=== PATIENT | male | born 1950 | race Caucasian/White ===

== ENCOUNTER 2017-07-08 12:02 | Day surgery (SDC) | payer MEDICARE ==
[2017-07-08 13:01] LABS: ADD MAN DIFF? NO
[2017-07-08 13:02] LABS: WHITE BLOOD COUNT 4.9 10^3/ul (4.8-10.8)
[2017-07-08 13:02] LABS: BASOPHILS % 0.8 % (0.0-2.0); EOSINOPHILS # 0.1 10^3/ul (0.0-0.5); EOSINOPHILS % 1.6 % (0.0-7.0); HEMATOCRIT 38.4 % (42.0-52.0); LYMPHOCYTES # 1.5 10^3/ul (0.8-2.9); LYMPHOCYTES % 30.8 % (15.0-51.0); MEAN CORPUSCULAR HEMOGLOBIN 30.1 pg (29.0-33.0); MEAN CORPUSCULAR HGB CONC 33.9 g/dl (32.0-37.0); MEAN CORPUSCULAR VOLUME 88.9 fl (82.0-101.0); MEAN PLATELET VOLUME 9.5 fl (7.4-10.4); MONOCYTE # 0.7 10^3/ul (0.3-0.9); MONOCYTES % 13.2 % (0.0-11.0); NEUTROPHIL # 2.6 10^3/ul (1.6-7.5); NEUTROPHILS % 53.4 % (39.0-77.0); PLATELET COUNT 260 10^3/UL (140-415); RED BLOOD COUNT 4.32 10^6/ul (4.70-6.10); RED CELL DISTRIBUTION WIDTH 13.2 % (11.5-14.5)
[2017-07-08] MEDS ORDERED: POLYMYXIN B 500000 UNIT INJ (13:07)
[2017-07-08] MEDS ORDERED: PROPOFOL 20 ML (13:13)
[2017-07-08] MEDS ORDERED: CEFAZOLIN 1 GM INJ (13:13)
[2017-07-08] MEDS ORDERED: ONDANSETRON 4 MG INJ (13:14)
[2017-07-08] MEDS ORDERED: FENTAnyl 50 MCG/ML VIAL (13:14)
[2017-07-08] MEDS ORDERED: MIDAZOLAM 1 MG/ML 2 ML INJ (13:14)
[2017-07-08 13:18] LABS: ANION GAP 16 (8-16); CARBON DIOXIDE 29 mmol/L (21-31); CHLORIDE 102 mmol/L (97-110); GLUCOSE 99 mg/dl (70-220)
[2017-07-08 13:19] LABS: BLOOD UREA NITROGEN 14 mg/dl (7-20); CALCIUM 9.5 mg/dl (8.4-10.2); CREATININE 1.67 mg/dl (0.61-1.24); POTASSIUM 4.6 mmol/L (3.5-5.1); SODIUM 142 mmol/L (135-144)
[2017-07-08] MEDS: POLYMYXIN B 500000 UNIT INJ IRR (13:23)
[2017-07-08] MEDS: BACITRACIN 50000 UNITS INJ (13:23)
[2017-07-08] MEDS: BUPIVACAINE 0.5% (SDV) 30 ML INJ (13:23)
[2017-07-08 13:27] LABS: INR 1.04; PROTIME 13.7 Sec (11.9-14.9); PT RATIO 1.1
[2017-07-08 13:28] LABS: PARTIAL THROMBOPLASTIN TIME 30.1 Sec (25.0-35.0)
[2017-07-08 13:38] LABS: ADD UMIC YES; UR ASCORBIC ACID NEGATIVE (NEGATIVE); UR BILIRUBIN (Dip) NEGATIVE (NEGATIVE); UR BLOOD (Dip) NEGATIVE (NEGATIVE); UR CLARITY CLEAR (CLEAR); UR COLOR YELLOW (YELLOW); UR GLUCOSE (Dip) NEGATIVE (NEGATIVE); UR KETONES (Dip) NEGATIVE (NEGATIVE); UR LEUKOCYTE ESTERASE (Dip) NEGATIVE Leu/ul (NEGATIVE); UR NITRITE (Dip) NEGATIVE (NEGATIVE); UR RBC 2 /HPF (0-5); UR SPECIFIC GRAVITY (Dip) 1.013 (1.003-1.030); UR TOTAL PROTEIN (Dip) 2+ mg/dl (NEGATIVE); UR UROBILINOGEN (Dip) 1+ mg/dL (NEGATIVE); UR WBC 0 /HPF (0-5)
[2017-07-08] MEDS ORDERED: hydrALAzine 20 MG INJ IV (14:30)
[2017-07-08] MEDS ORDERED: ONDANSETRON 4 MG INJ IV (14:30)
[2017-07-08] MEDS ORDERED: METOCLOPRAMIDE 10 MG INJ IV (14:30)
[2017-07-08] MEDS ORDERED: LABETALOL HCL 20MG INJ IV (14:30)
[2017-07-08] MEDS ORDERED: morphine (1 MG/ML) 10ML SYRINGE IV ×2 (14:30)
[2017-07-08] MEDS ORDERED: DIPHENHYDRAMINE 50 MG INJ IV (14:30)
[2017-07-08] MEDS ORDERED: HYDROmorphONE (0.2 MG/ML) 10ML SYG IV ×2 (14:30)
[2017-07-08] MEDS ORDERED: MEPERIDINE 25 MG INJ IV (14:30)
[2017-07-08] MEDS ORDERED: FENTAnyl 50 MCG/ML VIAL IV ×2 (14:30)
== END 2017-07-08 15:51 | disposition home or self-care (01) ==
LOC: SDS 12:02
DX: I70.248 Atherosclerosis of native arteries of left leg with ulceration of other part of lower leg (principal); L97.829 Non-pressure chronic ulcer of other part of left lower leg with unspecified severity; I10 Essential (primary) hypertension; E11.9 Type 2 diabetes mellitus without complications
CPT/HCPCS: 11042; 71045; 80048; 81001; 85025; 85610; 85730; 93005